=== PATIENT | female | born 2000 | race Two or more races ===

== ENCOUNTER 2022-07-13 01:04 | Outpatient (CLI) | payer OTHER | END 2022-07-13 13:12 | disposition home or self-care (01) | LOC: OBS/DEL 01:04 | PROVIDERS: ATTEND Specialist | DX: O26.852 Spotting complicating pregnancy, second trimester (principal); Z3A.20 20 weeks gestation of pregnancy; W08.XXXA Fall from other furniture, initial encounter; Y93.89 Activity, other specified; Y92.89 Other specified places as the place of occurrence of the external cause; Y99.8 Other external cause status ==

== ENCOUNTER 2022-10-28 00:16 | Outpatient (CLI) | payer OTHER | END 2022-10-28 13:49 | disposition home or self-care (01) | LOC: OBS/DEL 00:16 | PROVIDERS: Student in an Organized Health Care Education/Training Program; ATTEND Specialist | DX: O47.03 False labor before 37 completed weeks of gestation, third trimester (principal); Z3A.36 36 weeks gestation of pregnancy ==